=== PATIENT | female | born 1955 | race Caucasian/White ===

== ENCOUNTER 2019-04-30 13:10 | Outpatient (CLI) | payer BC, SELFPAY ==
[2019-04-30 14:23] LABS: Basophils Percent Auto 0.8 % (0.2-1.2); Eosinophils Absolute Auto 0.1 K/mm3 (0-0.3); Eosinophils Percent Auto 2.3 % (0-4.4); Hematocrit 39.6 % (37.0-47.0); Hemoglobin 12.5 g/dL (12.0-15.0); Lymphocytes Absolute Auto 1.79 K/mm3 (0.9-3.2); Mean Corpuscular HGB Conc 31.6 g/dl (32-36); Mean Corpuscular Volume 88.6 fl (80-100); Mean Platelet Volume 11.4 fl (7.4-10.4); Monocytes Absolute Auto 0.5 K/mm3 (0.1-0.6); Monocytes Percent Auto 9.1 % (2.6-8.5); Neutrophils Absolute Auto 2.8 K/mm3 (1.3-6.7); Neutrophils Percent Auto 53.8 % (45.5-73.1); Platelet Count Result 197 k/mm3 (150-375); Red Blood Count 4.47 M/mm3 (4.2-5.4); Red Cell Distribution Width 13.9 % (11.5-14.5); White Blood Count 5.3 K/mm3 (4.5-10.0)
[2019-04-30 14:34] LABS: INR 1.1; Prothrombin Time 13.9 Seconds (11.1-14.7)
[2019-04-30 14:38] LABS: CRP < 0.5 mg/dL (<1.0)
[2019-04-30 14:46] LABS: Hemoglobin A1C 5.2 % (<5.7)
[2019-04-30 14:48] LABS: Add Urine Microscopic? YES; Appearance Urine Cloudy (Clear); Bacteria Urine Trace /hpf; Bilirubin Urine Negative (Negative); Blood Urine Negative (Negative); Color Urine Amber (Yellow); Glucose Urine UA Negative (Negative); Ketones Urine Negative (Negative); Leukocyte Esterase Ur 3+ LEU/UL (NEGATIVE); Mucus Urine Few /lpf; Nitrate Urine Negative (Negative); Protein Urine Negative (Negative); Specific Grav Ur 1.028 (1.001-1.035); Squamous Epithelial Cell Urine Moderate /hpf (Few); Uric Acid Crystals Urine Many /hpf
[2019-04-30 14:52] LABS: LDL Cholesterol Direct 90 mg/dL
[2019-04-30 15:05] LABS: Iron 89 ug/dL (37-170)
[2019-04-30 15:07] LABS: Alanine Aminotransferase 23 U/L (4-35); Albumin Level 3.8 g/dL (3.5-5.1); Alkaline Phosphatase 80 U/L (38-126); Aspartate Amino Transferase 30 U/L (14-36); Bilirubin,Total 0.6 mg/dL (0.2-1.3); Blood Urea Nitrogen 16 mg/dL (7-17); Calcium 9.3 mg/dL (8.4-10.2); Carbon Dioxide 30 mmol/L (22-30); Chloride 103 mmol/L (98-107); Cholesterol 145 mg/dL (0-200); Estimated Glomerular Filt Rate 50; Glucose 83 mg/dL (65-105); HDL Direct 35 mg/dL; Parathyroid Intact 63.2 pg/mL (7.5-53.5); Phosphorus 3.5 mg/dL (2.5-4.5); Potassium 3.6 mmol/L (3.4-5.0); Sodium 139 mmol/L (137-145); Triglycerides 67 mg/dL (<150); Uric Acid 4.3 mg/dL (2.5-7.5)
[2019-04-30 15:09] LABS: Creatinine Urine 229.9 mg/dL
[2019-04-30 15:14] LABS: Microalbumin Urine Random 11.6 mg/L (0-16.7)
[2019-04-30 15:15] LABS: Percent Iron Saturation 25 % (20-50)
[2019-04-30 15:25] LABS: Free T4 Free Thyroxine 1.13 ng/mL (0.78-2.19)
[2019-04-30 15:42] LABS: Folic Acid > 20.0 ng/mL (2.76->20)
[2019-04-30 16:17] LABS: Vitamin D 25 Hydroxy 44.8 ng/mL
[2019-05-02 16:26] LABS: Zinc 58 mcg/dL (60-130)
[2019-05-03 03:10] LABS: Insulin Level Total 6.1 uIU/mL (<=19.6)
[2019-05-03 15:29] LABS: Vitamin B6 49.5 ng/mL (2.1-21.7)
[2019-05-03 19:15] LABS: GGT 14 U/L (3-65)
[2019-05-03 19:56] LABS: Triiodothyronine T3 Free 2.3 pg/mL (2.3-4.2)
[2019-05-04 09:30] LABS: Vitamin B1 36 nmol/L (8-30)
== END 2019-04-30 13:11 | disposition home or self-care (01) ==
DX: E46 Unspecified protein-calorie malnutrition (principal); E61.1 Iron deficiency; E88.81 Metabolic syndrome and other insulin resistance; E03.9 Hypothyroidism, unspecified; R73.9 Hyperglycemia, unspecified; E78.5 Hyperlipidemia, unspecified; E83.42 Hypomagnesemia; E83.39 Other disorders of phosphorus metabolism; E79.0 Hyperuricemia without signs of inflammatory arthritis and tophaceous disease; E53.8 Deficiency of other specified B group vitamins; E55.9 Vitamin D deficiency, unspecified; K76.0 Fatty (change of) liver, not elsewhere classified; K90.9 Intestinal malabsorption, unspecified; Z79.899 Other long term (current) drug therapy
CPT/HCPCS: 36415; 80053; 80061; 81001; 82043; 82306; 82525; 82607; 82728; 82746; 82977; 83036; 83525; 83540; 83550; 83735; 83970; 84100; 84207; 84425; 84439; 84443; 84481; 84550; 84630; 85025; 85610; 86140; 86141; 87086; 87088

== ENCOUNTER → 2019-12-27 17:46 | Outpatient (CLI) | payer BC, SELFPAY ==
--- NOTE | ~2019-12-27 | MM_ITS ---
EXAMINATION: MM screening [facility] BI w prabhjot HISTORY: Screening mammogram TECHNIQUE: Craniocaudal and mediolateral oblique 3-D tomosynthesis images were obtained and synthetic 2-D images were generated. CAD analysis was submitted and interpreted. COMPARISON: 09/12/2018, 08/04/2017, 07/16/2017, 11/25/2011 BREAST PARENCHYMAL COMPOSITION: There are scattered areas of fibroglandular density. FINDINGS: RIGHT BREAST: There is no evidence of suspicious mass, calcification, or architectural distortion to suggest malignancy. There has been no significant interval change. LEFT BREAST: A 6 mm mass is present in the anterior third of the slightly upper breast. IMPRESSION: 1. Left breast mass. 2. Additional mammographic views and possible breast ultrasound are recommended. BI-RADS Category 0: Incomplete: Needs additional imaging evaluation. Reviewed, dictated and finalized at location A. IMPRESSION: 1. Left breast mass. 2. Additional mammographic views and possible breast ultrasound are recommended . BI-RADS Category 0: Incomplete: Needs additional imaging evaluation.
== END ==
PROVIDERS: PCP Family Medicine; Visit Provider Obstetrics & Gynecology
DX: Z12.31 Encounter for screening mammogram for malignant neoplasm of breast (principal); R92.8 Other abnormal and inconclusive findings on diagnostic imaging of breast
CPT/HCPCS: 77063; 77067

== ENCOUNTER → 2020-01-15 09:29 | Outpatient (CLI) | payer BC, SELFPAY ==
--- NOTE | ~2020-01-15 | MMUS_ITS ---
EXAMINATION: MM diagnostic mammo unilat LT, US breast LT limited HISTORY: Left breast mass on screening mammogram TECHNIQUE: Additional 3-D tomosynthesis images of the left breast were performed and synthetic 2-D im ages were generated. CAD analysis was submitted and interpreted. High resolution limited left breast ultrasound was performed. COMPARISON: 12/27/2019, 09/12/2018, 07/16/2017 FINDINGS: MAMMOGRAPHIC FINDINGS: There is a 5 mm low-density obscured mass in the anterior third of the slightly upper breast at the 1 2:00 location 3 cm from the nipple. ULTRASOUND: There is a 5 mm x 3 mm oval, circumscribed, parallel, hypoechoic mass at the 11:30 location near the nipple. A 4 mm anechoic mass is seen at the 12:00 location near the nipple. Also seen is a 5 mm anech oic mass at the 3:00 location near the nipple. IMPRESSION: 1. Probably benign left breast masses. 2. Recommend 6 month follow-up left diagnostic mammogram and ultrasound. BI-RADS category 3, probably benign findings. Reviewed, dictated and finalized at location A. K SERVICE MANAGER IMPRESSION: 1. Probably benign left breast masses. 2. Recommend 6 month follow-up left diagnostic mammogram and ultrasound. BI-RADS category 3, probably benign findings.
== END ==
PROVIDERS: PCP Family Medicine; Visit Provider Obstetrics & Gynecology
DX: N63.22 Unspecified lump in the left breast, upper inner quadrant (principal); N63.25 Unspecified lump in the left breast, overlapping quadrants
CPT/HCPCS: 76642; 77065

== ENCOUNTER 2021-12-17 09:55 | Outpatient (CLI) | payer BC, SELFPAY ==
[2021-12-17 20:06] LABS: Basophils Absolute Auto 0.1 K/mm3 (0.0-0.1); Basophils Percent Auto 1.1 % (0.2-1.2); Eosinophils Absolute Auto 0.1 K/mm3 (0-0.3); Eosinophils Percent Auto 2.6 % (0-4.4); Hematocrit 41.9 % (37.0-47.0); Hemoglobin 13.3 g/dL (12.0-15.0); Immature Granulocyte Absolute 0.01 K/mm3 (0.00-0.031); Immature Granulocyte Percent A 0.2 % (0-0.5); Lymphocytes Absolute Auto 1.64 K/mm3 (0.9-3.2); Lymphocytes Percent Auto 30.9 % (18.3-44.2); Mean Corpuscular HGB Conc 31.7 g/dl (32-36); Mean Corpuscular Hemoglobin 29.1 pg (26-34); Mean Corpuscular Volume 91.7 fl (80-100); Mean Platelet Volume 11.7 fl (7.4-10.4); Monocytes Absolute Auto 0.5 K/mm3 (0.1-0.6); Monocytes Percent Auto 9.6 % (2.6-8.5); Neutrophils Absolute Auto 2.9 K/mm3 (1.3-6.7); Neutrophils Percent Auto 55.6 % (45.5-73.1); Platelet Count Result 224 k/mm3 (150-375); Red Blood Count 4.57 M/mm3 (4.2-5.4); White Blood Count 5.3 K/mm3 (4.5-10.0)
[2021-12-17 20:38] LABS: Alanine Aminotransferase 21 U/L (6-35); Alkaline Phosphatase 86 U/L (38-126); Anion Gap 10 mmol/L (8-16); Aspartate Amino Transferase 25 U/L (14-36); Bilirubin,Total 0.7 mg/dL (0.2-1.3); Blood Urea Nitrogen 15 mg/dL (7-17); Calcium 9.2 mg/dL (8.4-10.2); Carbon Dioxide 26 mmol/L (22-30); Chloride 106 mmol/L (98-107); Cholesterol 150 mg/dL (0-200); Estimated Glomerular Filt Rate 56; Glucose 75 mg/dL (65-110); HDL Direct 42 mg/dL; Potassium 3.4 mmol/L (3.4-5.0); Sodium 142 mmol/L (137-145); Triglycerides 80 mg/dL (<150)
[2021-12-17 20:40] LABS: Vitamin D 25 Hydroxy 55.5 ng/mL
[2021-12-17 20:49] LABS: LDL Cholesterol Direct 79 mg/dL
== END 2021-12-17 09:56 | disposition home or self-care (01) ==
LOC: ANHGOSHLAB 09:58
PROVIDERS: PCP Family Medicine; Visit Provider Nurse Practitioner Family
DX: E03.9 Hypothyroidism, unspecified (principal); I10 Essential (primary) hypertension; E55.9 Vitamin D deficiency, unspecified
CPT/HCPCS: 36415; 80053; 80061; 82306; 84443; 85025

== ENCOUNTER 2022-05-14 10:41 | Outpatient (CLI) | payer BC, MEDICARE, SELFPAY ==
--- NOTE | ~2022-05-14 | DEXA_ITS ---
Bone Density Report Name: NATHALIE RODRIGUEZ Age: 67 Sex: Female Ethnicity: White Date of : 1955 Indication: postmenopausal; screening for osteoporosis; height loss; Referring Provider: Suzi Morin Study: Bone densitometry was performed. Exam Date: May 14, 2022 Accession number: [id number] Bone Density: Region BMD T-score Z-score Classification AP Spine (L1-L4) 1.098 0.5 2.2 Normal Femoral Neck (Left) 0.826 -0.2 1.3 Normal Total Hip (Left) 0.961 0.2 1.4 Normal Femoral Neck (Right) 0.771 -0.7 0.8 Normal Total Hip (Right) 0.878 -0.5 0.7 Normal Total Hip Mean 0.920 -0.2 1.1 Normal World Health Organization criteria for BMD impression classify patients as: Normal (T-score at or above -1.0), Osteopenia (T-score between -1.0 and -2.5), or Osteoporosis (T-score at or below -2.5). 10-year Fracture Risk: FRAX not reported because: All T-scores for Spine Total, Hip Total, Femoral Neck at or above -1.0 Clinical Information Provided by Patient: Has used the following medications: Vitamin D, Calcium, MTV Patient maximum height was 72 Menopause Age: 62 Drinks caffeinated beverages Onset of menses at age 18 Number of children 3 Impression: The patient has normal bone mass. Discussion: BONE DENSITY IS ABOVE THE MINIMUM DESIRABLE LEVEL AT ALL SKELETAL SITES TESTED. This patient?s bone mineral density is above the minimum desirable level (T-score -1.0 or better) at all sites measured. The patient should follow a healthful lifestyle (good nutrition with adequate calcium and vitamin D, and appropriate weight-bearing exercise). Follow-Up: Consider repeating this study in 5 years or sooner if there is some new clinical indication. Reported by: ARJUN on 05/14/2022 11:41:00 AM. Reviewed, dictated and finalized at location ALaw ACEVEDO
--- NOTE | ~2022-05-14 | MM_ITS ---
EXAMINATION: MM screening [facility] BI w prabhjot HISTORY: Screening mammogram TECHNIQUE: Craniocaudal and mediolateral oblique 3-D tomosynthesis images were obtained and synthetic 2-D images were generated. CAD analysis was submitted and interpreted. COMPARISON: 01/15/2020 diagnostic left mammogram and limited left breast ultrasound 12/27/2019, 09/12/2018 bilateral screening mammogram examinations BREAST PARENCHYMAL COMPOSITION: There are scattered areas of fibroglandular density. FINDINGS: Approximately 4.4 x 9.7 mm new circumscribed opacity is noted in the lower outer right [address]. There are scattered additional smaller low-density circumscribed left mammographic opacities. Otherwise there is no evidence of suspicious mass, calcification, or architectural distortion to sugg est malignancy in either breast. There has been no other suspicious interval change. IMPRESSION: 1. New 4.4 x 9.7 mm circumscribed opacity in the lower outer right breast 2. Diagnostic left mammogram and left breast ultrasound examination are recommended. BI-RADS Category 0: Incomplete: Needs additional imaging evaluation. Reviewed, dictated and finalized at location A. IMPRESSION: 1. New 4.4 x 9.7 mm circumscribed opacity in the lower outer right breast 2. Diagnostic left mammogram and left breast ultrasound examination are recomme nded. BI-RADS Category 0: Incomplete: Needs additional imaging evaluation.
== END 2022-05-14 10:42 ==
PROVIDERS: PCP Family Medicine; Visit Provider Nurse Practitioner Family
DX: Z12.31 Encounter for screening mammogram for malignant neoplasm of breast (principal); Z78.0 Asymptomatic menopausal state; R92.8 Other abnormal and inconclusive findings on diagnostic imaging of breast
CPT/HCPCS: 77063; 77067; 77080

== ENCOUNTER → 2022-07-15 09:07 | Outpatient (CLI) | payer MEDICARE, BC, SELFPAY ==
--- NOTE | ~2022-07-15 | MMUS_ITS ---
EXAMINATION: MM diagnostic [facility] LT w prabhjot, US breast LT limited HISTORY: Possible left breast mass on screening mammogram TECHNIQUE: Additional 3-D tomosynthesis images of the left breast were performed and synthetic 2-D im ages were generated. CAD analysis was submitted and interpreted. High resolution limited left breast ultrasound was performed. COMPARISON: 05/14/2022, 01/15/2020, 12/27/2019, 09/12/2018 BREAST PARENCHYMAL COMPOSITION: There are scattered areas of fibroglandular density. FINDINGS: MAMMOGRAPHIC FINDINGS: There is a 10 mm x 4 mm oval, obscured, equal density mass in the middle third of the lower-outer clarice ast at the 4:00 location, 9 cm from the nipple. ULTRASOUND: There is a 12 mm x 3 mm cyst with thin internal septation at the 4:00 location, 5 cm from the nipple corresponding to the mammographic finding in question. An 8 mm x 2 mm oval, circumscribed, parallel, hypoechoic mass with no posterior features or internal vascularity is present at the 5:00 location, 7 cm from the nipple. IMPRESSION: 1. Benign mass accounting for the mammographic finding in question and probably benign sonographicall y detected mass at the 5:00 location. 2. Recommend 6 month follow-up limited left breast ultrasound. BI-RADS category 3, probably benign findings. Reviewed, dictated and finalized at location A. IMPRESSION: 1. Benign mass accounting for the mammographic finding in question and probably benign sonographically detected mass at the 5:00 location. 2. Recommend 6 month follow-up limited left breast ultrasound. BI-RADS category 3, probably benign findings.
== END ==
PROVIDERS: PCP Obstetrics & Gynecology; Visit Provider Nurse Practitioner Family
DX: R92.8 Other abnormal and inconclusive findings on diagnostic imaging of breast (principal)
CPT/HCPCS: 76642; 77061; 77065; G0279

== ENCOUNTER 2023-06-20 12:11 | Outpatient (CLI) | payer MEDICARE, BC, SELFPAY ==
--- NOTE | ~2023-06-20 | US_ITS ---
EXAMINATION: US soft tissue head and neck DATE: 06/20/2023 12:56 INDICATION: Left neck focal swelling. TECHNIQUE: Multiple grayscale and Doppler ultrasound images of the head and neck were obtained. COMPARISON: None FINDINGS: The left parotid gland is normal. There is a normal lymph node in the left parotid gland. IMPRESSION: 1. No abnormal mass or lymphadenopathy in the patient's area of concern near the left parotid gland. Reviewed, dictated and finalized at location E. IMPRESSION: 1. No abnormal mass or lymphadenopathy in the patient's area of concern near th e left parotid gland.
--- NOTE | ~2023-06-20 | MM_ITS ---
EXAMINATION: MM screening [facility] BI w prabhjot HISTORY: Screening mammogram TECHNIQUE: Craniocaudal and mediolateral oblique 3-D tomosynthesis images were obtained and synthetic 2-D images were generated. CAD analysis was submitted and interpreted. COMPARISON: 07/15/2022 diagnostic left mammogram and limited left breast ultrasound 05/14/2022 bilateral screening mammogram 01/15/2020 diagnostic left mammogram and limited left breast ultrasound 12/27/2019 bilateral screening mammogram BREAST PARENCHYMAL COMPOSITION: There are scattered areas of fibroglandular density. FINDINGS: There is no evidence of suspicious mass, calcification, or architectural distortion to sugg est malignancy in either breast. There has been no suspicious interval change. IMPRESSION: 1. No mammographic evidence of malignancy. 2. Recommend routine screening mammography in one year. BI-RADS Category 1: Negative Reviewed, dictated and finalized at location A.
== END 2023-06-20 12:12 ==
PROVIDERS: PCP Family Medicine; Visit Provider Family Medicine
DX: Z12.31 Encounter for screening mammogram for malignant neoplasm of breast (principal); R22.0 Localized swelling, mass and lump, head
CPT/HCPCS: 76536; 77063; 77067

== ENCOUNTER 2023-06-23 12:39 | Outpatient (CLI) | payer MEDICARE, BC, SELFPAY ==
[2023-06-23 19:22] LABS: Basophils Absolute Auto 0.1 K/mm3 (0.0-0.1); Basophils Percent Auto 1.4 % (0.2-1.2); Eosinophils Absolute Auto 0.3 K/mm3 (0-0.3); Eosinophils Percent Auto 4.4 % (0-4.4); Hematocrit 40.2 % (37.0-47.0); Hemoglobin 12.7 g/dL (12.0-15.0); Immature Granulocyte Absolute 0.01 K/mm3 (0.00-0.031); Immature Granulocyte Percent A 0.2 % (0-0.5); Lymphocytes Absolute Auto 1.84 K/mm3 (0.9-3.2); Lymphocytes Percent Auto 32.3 % (18.3-44.2); Mean Corpuscular HGB Conc 31.6 g/dl (32-36); Mean Corpuscular Hemoglobin 27.7 pg (26-34); Mean Corpuscular Volume 87.6 fl (80-100); Mean Platelet Volume 11.4 fl (7.4-10.4); Monocytes Absolute Auto 0.5 K/mm3 (0.1-0.6); Monocytes Percent Auto 8.6 % (2.6-8.5); Neutrophils Percent Auto 53.1 % (45.5-73.1); Platelet Count Result 214 k/mm3 (150-375); Red Blood Count 4.59 M/mm3 (4.2-5.4); Red Cell Distribution Width 14.6 % (11.5-14.5); White Blood Count 5.7 K/mm3 (4.5-10.0)
[2023-06-23 21:27] LABS: Iron 64 ug/dL (37-170)
[2023-06-23 21:36] LABS: Percent Iron Saturation 18 % (20-50)
[2023-06-23 21:41] LABS: Alanine Aminotransferase 15 U/L (6-35); Albumin Level 3.9 g/dL (3.5-5.1); Alkaline Phosphatase 95 U/L (38-126); Anion Gap 6 mmol/L (4-12); Aspartate Amino Transferase 33 U/L (14-36); Bilirubin,Total 0.7 mg/dL (0.2-1.3); Blood Urea Nitrogen 17 mg/dL (7-17); Calcium 9.3 mg/dL (8.4-10.2); Carbon Dioxide 26 mmol/L (22-30); Chloride 110 mmol/L (98-107); Cholesterol 174 mg/dL (0-200); Estimated Glomerular Filt Rate > 60; Glucose 80 mg/dL (65-110); HDL Direct 45 mg/dL; Potassium 3.8 mmol/L (3.4-5.0); Sodium 142 mmol/L (137-145); Triglycerides 98 mg/dL (<150)
[2023-06-23 21:58] LABS: Vitamin D 25 Hydroxy 41.2 ng/mL
[2023-06-23 22:18] LABS: LDL Cholesterol Direct 95 mg/dL
[2023-06-23 23:39] LABS: Folic Acid > 20.0 ng/mL (2.76->20)
== END 2023-06-23 12:40 | disposition home or self-care (01) ==
PROVIDERS: PCP Family Medicine; Visit Provider Family Medicine
DX: E03.9 Hypothyroidism, unspecified (principal); D64.9 Anemia, unspecified; E78.5 Hyperlipidemia, unspecified; Z90.3 Acquired absence of stomach [part of]; E55.9 Vitamin D deficiency, unspecified; R73.9 Hyperglycemia, unspecified; I12.9 Hypertensive chronic kidney disease with stage 1 through stage 4 chronic kidney disease, or unspecified chronic kidney disease; N18.31 Chronic kidney disease, stage 3a
CPT/HCPCS: 36415; 80053; 80061; 82306; 82607; 82728; 82746; 83036; 83540; 83550; 84443; 85025

== ENCOUNTER 2024-06-26 14:58 | Outpatient (CLI) | payer MEDICARE, BC, SELFPAY ==
--- NOTE | ~2024-06-26 | XR_ITS ---
XR abdomen/kub 1V 06/26/2024 15:25 INDICATION: Upper abdomen pain. TECHNIQUE: KUB COMPARISON: None FINDINGS: There is mildly distended small bowel loops left midabdomen, which may be related to normal bowel contractility, focal adynamic ileus or less likely partial obstruction. There is no evidence o f free air, mass, organomegaly, ascites. No abnormal calculi are seen. The bones appear intact. Lung bases unremarkable. IMPRESSION: 1: Mildly distended small bowel loops left midabdomen, which may be related to normal bowel contracti lity, focal adynamic ileus or less likely partial obstruction. . Reviewed, dictated and finalized at location A. IMPRESSION: 1: Mildly distended small bowel loops left midabdomen, which may be related to normal bowel contractility, focal adynamic ileus or less likely partial obstruc tion. .
== END 2024-06-26 14:59 | disposition home or self-care (01) ==
LOC: GOSHIMG 14:59
PROVIDERS: PCP Family Medicine; Visit Provider Family Medicine
DX: R10.9 Unspecified abdominal pain (principal)
CPT/HCPCS: 74018

== ENCOUNTER 2024-08-15 13:14 | Outpatient (CLI) | payer MEDICARE, BC, SELFPAY ==
[2024-08-15 13:59] LABS: Hematocrit 41.1 % (37.0-47.0); Mean Corpuscular HGB Conc 31.6 g/dl (32-36); Mean Corpuscular Hemoglobin 28.2 pg (26-34); Mean Corpuscular Volume 89.2 fl (80-100); Mean Platelet Volume 10.6 fl (7.4-10.4); Platelet Count Result 205 k/mm3 (150-375); Red Blood Count 4.61 M/mm3 (4.2-5.4); Red Cell Distribution Width 13.9 % (11.5-14.5); White Blood Count 5.8 K/mm3 (4.5-10.0)
[2024-08-15 14:10] LABS: INR 1.1; Prothrombin Time 14.1 Seconds (11.1-14.7)
[2024-08-15 14:11] LABS: Partial Thromboplastin Time 26.4 Seconds (22.3-36.8)
[2024-08-15 14:16] LABS: Anion Gap 10 mmol/L (4-12); Blood Urea Nitrogen 11 mg/dL (7-17); Calcium 8.8 mg/dL (8.4-10.2); Carbon Dioxide 23 mmol/L (22-30); Chloride 109 mmol/L (98-107); Estimated Glomerular Filt Rate > 60; Glucose 86 mg/dL (65-110); Potassium 3.2 mmol/L (3.4-5.0); Sodium 142 mmol/L (137-145)
--- OUTSIDE RECORDS SUMMARY | 2024-08-15 15:05 | XMS_ITS ---
Author Organization Unknown Address [address] [place] [id number] Phone Care Team Providers Care Metallurgical Technician Name Role Phone LAKSHMI KWAN Nursing Staff Unavailable SEAN LICEA Attending Unavailable Results [id number] - UA AUTOMATED W/O ESTELA RO MCR/TARA - Collect Date/Time: 07/13/2023 13:08 [facility] ID: [id number] [address], [place], [place], [id number] LOINC: Test Value Unit Reference Range Code Code System Flag SOURCE CLEAN CATCH NORMAL: CLEAN CATCH COLOR YELLOW NORMAL: YELLOW CLARITY CLOUDY NORMAL: CLEAR UA GLUCOSE NEGATIVE NORMAL: NEGATIVE BILIRUBIN NEGATIVE NORMAL: NEGATIVE KETONES NEGATIVE NORMAL: NEGATIVE SPEC GRAV 1.025 NORMAL: 1.005-1.030 BLOOD MODERATE (2+) NORMAL: NEGATIVE PH 7.0 NORMAL: 5.0-9.0 PROTEIN 2+ (100) NORMAL: 0.0-300mg/dL A UROBILIRUBIN 0.2 NORMAL: 0.2-1.0 EU/dL NITRATE NEGATIVE NORMAL: NEGATIVE LEUKOCYTES SMALL (1+) NORMAL: NEGATIVE A Social History Type Status Start Date End Date Code Code Syst em Sex Female Vital Signs Vital Sign Value Unit Simms Value Simms Unit Date/Time Recent/Initial? Code Code System Body Mass Index 45.99 kg/m2 07/13/2023 12:30 Initial 26300 -5 LOINC Systolic Blood Pressure 168 mm[Hg] 07/13/2023 12:30 Initial 8480- 6 LOINC Diastolic Blood Pressure 100 mm[Hg] 07/13/2023 12:30 Initial 8462- 4 LOINC Body Surface Area 2.62 m2 07/13/2023 12:30 Initial 3140- 1 LOINC Height 175.260 0 cm 69.00 in 07/13/2023 12:30 Initial 8302- 2 LOINC O2 Saturation 97 % 2023 12:30 Initial 73068 -5 LOINC Pulse 70.0 /min 07/13/2023 12:30 Initial 8867- 4 LOINC Respiration 19 /min 07/13/19 12:30 Initial 9279- 1 LOINC Temperature 36.2 Sujatha 97.1 F 07/13/19 12:30 Initial 8310- 5 LOINC Weight 141.25 kg 311.40 lbs 07/13/2023 12:30 Initial 56753 -7 LOINC Medications Medication Start Date End Date Route Frequency Dose Code Code System Medication Instructions Home Meds Cefdinir 300MG Oral Capsule 07/13/2023 Unknown By mouth Every 12 hours 1 CAPSULE 20020603 RxNorm 1 CAPSULE By mouth Every 12 hours x 7 days Assessment You had the following problems:ACUTE UTIDYSURIA Hospital Discharge Instructions Should you have any questions prior to discharge, please contact a member of your healthcare team. If you have left the hospital and have any questions, please contact your primary care physician. Reason For Referral No Data Found Problems Problem Start Date Resolved Date Status Code Code System ACUTE UTI active 998749987 SNOMED-CT DYSURIA active 95655116 SNOMED-CT Allergies and Adverse Reactions Allergy Substance Reaction Severity Start Date Concern Status Co de Code System LATEX Active 6009445 RxNorm CELEBREX Active 726166 RxNorm EGGS Active Plan of Treatment No Data Found Encounters Encounter Diagnosis Start Date Code Code Sys tem Acute urinary tract infection 07/13/2023 244252315 SNOMED-CT Personal Care Team Section Performer Name Performer Role Active Date Inactive Da te
--- OUTSIDE RECORDS SUMMARY | 2024-08-15 15:05 | XMS_ITS | Referral Summary ---
Author Organization [facility] [address] Address [address] [place] [address] Care Team Providers Care Soldering Machine Feeder Name Role Phone Jose Enrique Moreno MD Primary Care Provider Encounters Date Type Department Care Team Description 07/12/2024 Telephone [facility] Metabolic Weight Management [address] [place] [address] Medical [address] [place] [address] Phinitkhjungkruad , Ni, EXERCISE PHYSIOLOGIST CERTIFIED Prior Auth (Zepbound pen-injectors) 07/11/2024 Orders Only [facility] Metabolic Weight Management [address] [place] [address] Medical Office [address] [place] [address] Neva Rubio PA Morbid obesity with BMI of 45.0-49.9, adult (HCC) (Primary Dx) 07/11/2024 1:30 PM CDT Office Visit [facility] Metabolic Weight Management [address] [place] [address] [address] [place] [address] Neva Rubio PA Morbid obesity with BMI of 45.0-49.9, adult (HCC) (Primary Dx); History of sleeve gastrectomy; Lymphedema; Secondary hypertension; Encounter for weight loss counseling; Obstructive sleep apnea from Last 3 Months Allergies Active Allergy Reactions Criticality Noted Date Comments Latex Rash Medium 11/30/2023 Medications levothyroxine (SYNTHROID) 100 mcg tablet Take 1 tablet (100 mcg total) by mouth daily 08/21/202 4 Active losartan (COZAAR) 100 mg tablet Take 1 tablet (100 mg total) by mouth daily 4 Active vitamin A 3,000 mcg (10,000 units) capsule Take 1 capsule (10,000 Units total) by mouth daily Active multivit-min/iron/ folic acid/K (BARIATRIC MULTIVITAMINS ORAL) Take by mouth Active zinc acetate 25 mg (zinc) capsule Take by mouth Active tirzepatide, weight loss, (Zepbound) 2.5 mg/0.5 mL pen injectorIndication s:Obstructive sleep apnea Inject 0.5 mL (2.5 mg total) under the skin every 7 days 2 mL 2 5 Active semaglutide (WEGOVY) 0.25 mg/0.5 mL auto-injectorIndic ations:Morbid obesity with BMI of 45.0-49.9, adult (HCC) Inject 0.25 mg under the skin every 7 days 6 mL 5 Active Active Problems Problem Noted Date Diagnosed Date Vitamin A deficiency 11/30/2023 Assessment & Plan (01/25/2024 2:10 PM CONTRACT MODELER): Cont vit a supplemenet, recheck next visit Assessment & Plan (11/30/2023 1:39 PM CDT): On vit A 10,000 International units daily, recheck next visit History of sleeve gastrectomy 10/26/2023 Assessment & Plan (07/11/2024 1:55 PM CDT): Followed by dr winters Assessment & Plan (01/25/2024 1:45 PM CONTRACT MODELER): Followed by dr winters Assessment & Plan (11/30/2023 1:39 PM CDT): Followed by dr winters Assessment & Plan (10/26/2023 1:55 PM CDT): Asked pt to follow up with Dr Winters for evaluation. Lymphedema 10/26/2023 Assessment & Plan (01/25/2024 1:46 PM CONTRACT MODELER): Hx of lipolymhedema, using wraps, significant improved by restarting GLP-1 Assessment & Plan (11/30/2023 1:39 PM CDT): Hx of lipolymhedema, using wraps, significant improved by restarting GLP-1 Assessment & Plan (10/26/2023 2:08 PM CDT): Hx of lipolymhedema, using wraps Other hyperlipidemia 10/26/2023 Assessment & Plan (10/26/2023 2:05 PM CDT): Continue current weight loss plan as outlined in note with close monitoring with routine lab work. Weight loss of 5-10% can show a reduction in HDL cholesterol. Jayy DONOVAN, Akosua TA, Rayray C, et al. Nutritional considerations with antiobesity medications. Obesity ([place]). 2023; 1-19. doi:[email or web address] HTN (hypertension) 10/26/2023 Assessment & Plan (07/11/2024 2:24 PM CDT): High in office, pt monitoring at home Assessment & Plan (10/26/2023 1:58 PM CDT): On cozar FAN on CPAP 10/26/2023 Assessment & Plan (10/26/2023 2:05 PM CDT): Obesity is one of the leading risk factor for mortality. Metabolically healthy obese individuals had 49% increased risk of coronary artery disease, 7% increased risk of cerebrovascular disease and 96% increased risk of heart failure. In other words, even individuals who are normal weight can have metabolic abnormalities and similar risk for cardiac vascular disease events. Thus, the complications that may result from metabolic syndrome and frequently serious and chronic. They include atherosclerosis, diabetes, myocardial infarction, renal disease, cardiovascular events such as stroke, nonalcoholic fatty liver disease, peripheral artery disease, and cardiovascular diseases. His diabetes develops; there is an increased risk of retinopathy, neuropathy, renal disease and amputation of labs. Therefore, treating obesity, obesity related diseases is exceedingly crucial. Improving the hypertrophic adipocytes function and decrease insulin resistance is the main goal of the treatment. Furthermore, an emerging concept that the anti-obesity agents must not only reduce the hypertrophic adipocytes but must also correct the fat dysfunction, adiposopathy. Weight loss is associated with increases in mean suppression of glucose production from baseline, is associated with increase insulin stimulated in glucose disposal from fat-free mass and weight loss increased beta cell function. In other words, weight loss change in hepatic insulin sensitivity and muscle insulin sensitivity, beta cell function and a 24-hour plasma glucose and insulin profiles. Our goal is and decreasing the weight between 16 and 20% which will significantly decrease the risk of morbidity and mortality. Encounter for weight loss counseling 10/26/2023 Assessment & Plan (07/11/2024 2:23 PM CDT): Relevant weight management chart notes reviewed. Lab reviewd 09/2023, started on vit a I counseled the patient on nutrition: Implementing First Line therapy was discussed. Furthermore, we recommend a diet with a slightly higher high protein content, lower glycemic index with carbohydrate restriction yet without daily energy restriction. This approach will need to a weight loss because of higher satiety sensation. Recommend avoiding food persevered in plastic, eating out or processed food. Avoid eating out and ultraprocessed foods. Recommend fresh/frozen protein and vegetables. Study YES and NO list. I counseled the patient on exercise: Recommend 36 min. cardio daily. Based on availiable data on the secondary prevention of coronary heart disease, stroke and prediabetes, physical activity is potentially as active as many drug interventions.Jayy Velazquez: BMJ 2013 [id number]:[id number];11/2012; Diabetes Care, Volume 35, Jan 2012. Pharmacotherapy: Reviewed medications; discussed with the patient changes in details, discussed side effects and risks of taking the medications in details with the patient. Patient expressed understanding of the new orders; see attached new treatment and orders. Topamax 25 1 tab BID wegovy 0.25mg weekly - samples given Check on zepbound with insurance - sent to pharmacy- [employer] federal medicare Phetermine -stopped 2/2 mood changes Assessment & Plan (01/25/2024 2:12 PM CONTRACT MODELER): Relevant weight management chart notes reviewed. Lab reviewd 09/2023, started on vit a I counseled the patient on nutrition: Implementing First Line therapy was discussed. Furthermore, we recommend a diet with a slightly higher high protein content, lower glycemic index with carbohydrate restriction yet without daily energy restriction. This approach will need to a weight loss because of higher satiety sensation. Recommend avoiding food persevered in plastic, eating out or processed food. Avoid eating out and ultraprocessed foods. Recommend fresh/frozen protein and vegetables. Study YES and NO list. I counseled the patient on exercise: Recommend 36 min. cardio daily. Based on availiable data on the secondary prevention of coronary heart disease, stroke and prediabetes, physical activity is potentially as active as many drug interventions.Jayy Velazquez: [employer] 2012 [id number];11/2012; Diabetes Care, Volume 35, Jan 2012. Pharmacotherapy: Reviewed medications; discussed with the patient changes in details, discussed side effects and risks of taking the medications in details with the patient. Patient expressed understanding of the new orders; see attached new treatment and orders. Topamax 25 1 tab BID wegovy 0.25mg weekly - sample box given ( Too expensive at 30 days at $365, consider 90 days and coupon, or ozempic from neisha) Pt will also check on insurance coverage changed for 2024 - if covered plan to increase dose to 0.5mg Phetermine -stopped 2/2 mood changes Assessment & Plan (11/30/2023 1:39 PM CDT): Relevant weight management chart notes reviewed. Labs ordered I counseled the patient on nutrition: Implementing First Line therapy was discussed. Furthermore, we recommend a diet with a slightly higher high protein content, lower glycemic index with carbohydrate restriction yet without daily energy restriction. This approach will need to a weight loss because of higher satiety sensation. Recommend avoiding food persevered in plastic, eating out or processed food. Avoid eating out and ultraprocessed foods. Recommend fresh/frozen protein and vegetables. Study YES and NO list. I counseled the patient on exercise: Recommend 36 min. cardio daily. Based on availiable data on the secondary prevention of coronary heart disease, stroke and prediabetes, physical activity is potentially as active as many drug interventions.Jayy Velazquez: BMA[employer]en 2012 [id number];11/2012; Diabetes Care, Volume 35, Jan 2012. Pharmacotherapy: Reviewed medications; discussed with the patient changes in details, discussed side effects and risks of taking the medications in details with the patient. Patient expressed understanding of the new orders; see attached new treatment and orders. Topamax 25 1 tab BID wegovy 0.25mg weekly - sample box given ( Too expensive at 30 days at $365, consider 90 days and coupon, or ozempic from [facility]isha) Pt will also check on insurance coverage if different plan in 2023 Phetermine -stopped 2/2 mood changes Assessment & Plan (10/26/2023 2:12 PM CDT): Relevant weight management chart notes reviewed. Labs ordered I counseled the patient on nutrition: Implementing First Line therapy was discussed. Furthermore, we recommend a diet with a slightly higher high protein content, lower glycemic index with carbohydrate restriction yet without daily energy restriction. This approach will need to a weight loss because of higher satiety sensation. Recommend avoiding food persevered in plastic, eating out or processed food. Avoid eating out and ultraprocessed foods. Recommend fresh/frozen protein and vegetables. Study YES and NO list. I counseled the patient on exercise: Recommend 36 min. cardio daily. Based on availiable data on the secondary prevention of coronary heart disease, stroke and prediabetes, physical activity is potentially as active as many drug interventions.Jayy Velazquez: BMJ 2013 [id number]:[id number];11/2012; Diabetes Care, Volume 35, Jan 2012. Pharmacotherapy: Reviewed medications; discussed with the patient changes in details, discussed side effects and risks of taking the medications in details with the patient. Patient expressed understanding of the new orders; see attached new treatment and orders. Topamax 25 1 tab BID Start: wegovy 0.25mg weekly - pt states covered by [employer] Phetermine -stopped 2/2 mood changes Intestinal malabsorption following gastrectomy 0 10/26/2023 Assessment & Plan (01/25/2024 1:57 PM CONTRACT MODELER): Bariatric MVI Zinc Calcium Vit D Topamax 25 1 tab BID Wegovy 0.25mg - samples --> wegovy 0.5mg 90 days Assessment & Plan (11/30/2023 1:22 PM CDT): Bariatric MVI Zinc Calcium Vit D Topamax 25 1 tab BID Wegovy 0.25mg - samples --> wegovy 0.5mg 90 days Assessment & Plan (10/26/2023 2:00 PM CDT): Monitor closely for malabsorption, labs ordered Morbid obesity with BMI of 45.0-49.9, adult 09/29 Assessment & Plan (01/25/2024 2:11 PM CONTRACT MODELER): Obesity is one of the leading risk factor for mortality. Metabolically healthy obese individuals had 49% increased risk of coronary artery disease, 7% increased risk of cerebrovascular disease and 96% increased risk of heart failure. In other words, even individuals who are normal weight can have metabolic abnormalities and similar risk for cardiac vascular disease events. Thus, the complications that may result from metabolic syndrome and frequently serious and chronic. They include atherosclerosis, diabetes, myocardial infarction, renal disease, cardiovascular events such as stroke, nonalcoholic fatty liver disease, peripheral artery disease, and cardiovascular diseases. His diabetes develops; there is an increased risk of retinopathy, neuropathy, renal disease and amputation of labs. Therefore, treating obesity, obesity related diseases is exceedingly crucial. Improving the hypertrophic adipocytes function and decrease insulin resistance is the main goal of the treatment. Furthermore, an emerging concept that the anti-obesity agents must not only reduce the hypertrophic adipocytes but must also correct the fat dysfunction, adiposopathy. Weight loss is associated with increases in mean suppression of glucose production from baseline, is associated with increase insulin stimulated in glucose disposal from fat-free mass and weight loss increased beta cell function. In other words, weight loss change in hepatic insulin sensitivity and muscle insulin sensitivity, beta cell function and a 24-hour plasma glucose and insulin profiles. Our goal is and decreasing the weight between 16 and 20% which will significantly decrease the risk of morbidity and mortality. Assessment & Plan (11/30/2023 1:39 PM CDT): Obesity is one of the leading risk factor for mortality. Metabolically healthy obese individuals had 49% increased risk of coronary artery disease, 7% increased risk of cerebrovascular disease and 96% increased risk of heart failure. In other words, even individuals who are normal weight can have metabolic abnormalities and similar risk for cardiac vascular disease events. Thus, the complications that may result from metabolic syndrome and frequently serious and chronic. They include atherosclerosis, diabetes, myocardial infarction, renal disease, cardiovascular events such as stroke, nonalcoholic fatty liver disease, peripheral artery disease, and cardiovascular diseases. His diabetes develops; there is an increased risk of retinopathy, neuropathy, renal disease and amputation of labs. Therefore, treating obesity, obesity related diseases is exceedingly crucial. Improving the hypertrophic adipocytes function and decrease insulin resistance is the main goal of the treatment. Furthermore, an emerging concept that the anti-obesity agents must not only reduce the hypertrophic adipocytes but must also correct the fat dysfunction, adiposopathy. Weight loss is associated with increases in mean suppression of glucose production from baseline, is associated with increase insulin stimulated in glucose disposal from fat-free mass and weight loss increased beta cell function. In other words, weight loss change in hepatic insulin sensitivity and muscle insulin sensitivity, beta cell function and a 24-hour plasma glucose and insulin profiles. Our goal is and decreasing the weight between 16 and 20% which will significantly decrease the risk of morbidity and mortality. Assessment & Plan (10/26/2023 1:57 PM CDT): Obesity is one of the leading risk factor for mortality. Metabolically healthy obese individuals had 49% increased risk of coronary artery disease, 7% increased risk of cerebrovascular disease and 96% increased risk of heart failure. In other words, even individuals who are normal weight can have metabolic abnormalities and similar risk for cardiac vascular disease events. Thus, the complications that may result from metabolic syndrome and frequently serious and chronic. They include atherosclerosis, diabetes, myocardial infarction, renal disease, cardiovascular events such as stroke, nonalcoholic fatty liver disease, peripheral artery disease, and cardiovascular diseases. His diabetes develops; there is an increased risk of retinopathy, neuropathy, renal disease and amputation of labs. Therefore, treating obesity, obesity related diseases is exceedingly crucial. Improving the hypertrophic adipocytes function and decrease insulin resistance is the main goal of the treatment. Furthermore, an emerging concept that the anti-obesity agents must not only reduce the hypertrophic adipocytes but must also correct the fat dysfunction, adiposopathy. Weight loss is associated with increases in mean suppression of glucose production from baseline, is associated with increase insulin stimulated in glucose disposal from fat-free mass and weight loss increased beta cell function. In other words, weight loss change in hepatic insulin sensitivity and muscle insulin sensitivity, beta cell function and a 24-hour plasma glucose and insulin profiles. Our goal is and decreasing the weight between 16 and 20% which will significantly decrease the risk of morbidity and mortality. Resolved Problems Problem Noted Date Diagnosed Date Resolved Date History of sleeve gastrectomy 10/26/2023 10/26/2023 Immunizations Immunization Administration Dates Next Due Tdap 06/15/2017,06/15/2016,09/28/2004 Social History Tobacco Use Types Packs/Day Years Used Date Smoking Tobacco: Never Passive Smoke Exposure: Never Smokeless Tobacco: Never Tobacco Cessation:Counseling Given: Not Answered Comments Unknown Sex and Gender Information Value Date Recorded Sex Assigned at Not on file Legal Sex Female 7:46 AM CDT Gender Identity Not on file Sexual Orientation Not on file Last Filed Vital Signs Vital Sign Reading Time Taken Comments Blood Pressure 140/100 07/11/2024 2:23 PM CDT Pulse 72 07/11/2024 1:31 PM CDT Temperature 36.7 C (98 F) 07/11/2024 1:31 PM CDT Respiratory Rate - - Oxygen Saturation 98% 07/11/2024 1:31 PM CDT Inhaled Oxygen Concentration - - Weight 140.8 kg (310 lb 7.2 oz) 07/11/2024 1:31 PM CDT Height 175.3 cm (5' 9) 07/11/2024 1:31 PM CDT Body Mass Index 45.85 07/11/2024 1:31 PM CDT Plan of Treatment Not on file Procedures Procedure Name Priority Date/Time Associated Diagnosis Comments COMPREHENSIVE METABOLIC PANEL Routine 11/14/2023 8:53 AM CDT HEMOGLOBIN A1C Routine 11/14/2023 8:53 AM CDT LIPID PANEL Routine 11/14/2023 8:53 AM CDT from Last 3 Months or Most Recently Relevant to Health Maintenance Results * Hemoglobin A1c (11/14/2023 8:53 AM CDT) Hgb A1C 5.3 <5.7 % of total Hgb [facility] Comment: For the purpose of screening for the presence of diabetes: <5.7% Consistent with the absence of diabetes 5.7-6.4% Consistent with increased risk for diabetes (prediabetes) > or =6.5% Consistent with diabetes This assay result is consistent with a decreased risk of diabetes. Currently, no consensus exists regarding use of hemoglobin A1c for diagnosis of diabetes in children. According to [place] Diabetes Association (ADA) guidelines, hemoglobin A1c <7.0% represents optimal control in non- diabetic patients. Different metrics may apply to specific patient populations. Standards of Medical Care in Diabetes(ADA). This test was performed on the Sarah jace c503 platform. Effective 05/16/23, a change in test platforms from the [employer] [address] [employer] to the Sarah jace c503 may have shifted HbA1c results compared to historical results. Based on laboratory validation testing conducted at [facility], the Sarah platform relative to the [employer] platform had an average increase in HbA1c value of < or = 0.3%. This difference is within accepted variability established by the National Glycohemoglobin Standardization Program. Note that not all individuals will have had a shift in their results and direct comparisons between historical and current results for testing conducted on different platforms is not recommended. 11/14/2023 8:53 AM CDT 11/14/2023 9:00 AM CDT [facility] - 11/18/2023 8:21 AM CDT FASTING:YES FASTING: YES Neva CARDENAS LAB BLOOD ORDERABLES Final Result [facility] [address] [place] [address] * (ABNORMAL) Lipid panel (11/14/2023 8:53 AM CDT) [facility] Cholesterol 146 <200 mg/dL [facility] HDL 48(L) > OR = 50 mg/dL [facility] Triglycerides 66 <150 mg/dL [facility] LDL 83 mg/dL (calc) [facility] Comment: Reference range: <100 Desirable range <100 mg/dL for primary prevention; <70 mg/dL for patients with CHD or diabetic patients with > or = 2 CHD risk factors. LDL-C is now calculated using the Anastacio-Sherman calculation, which is a validated novel method providing better accuracy than the Friedewald equation in the estimation of LDL-C. Anastacio SS et al. JESUS. 2013;310(19): 8645-9859 (http://education.[employer]/faq/IBH071) Chol/HDL ratio 3.0 <5.0 (calc) [facility] Non-HDL, (LDL+VLDL) 98 <130 mg/dL (calc) [facility] Comment: For patients with diabetes plus 1 major ASCVD risk factor, treating to a non-HDL-C goal of <100 mg/dL (LDL-C of <70 mg/dL) is considered a therapeutic option. 11/14/2023 8:53 AM CDT 11/14/2023 9:00 AM CDT Narrative [facility] - 11/18/2023 8:21 AM CDT FASTING:YES FASTING: YES Neva CARDENAS LAB BLOOD ORDERABLES Final Result [facility] [id number] [place] [address] * (ABNORMAL) Comprehensive metabolic panel (11/14/2023 8:53 AM CDT) Pathologist [facility] Glucose 74 65 - 99 mg/dL [facility] Comment: Fasting reference interval BUN 18 7 - 25 mg/dL [facility] Creatinine 0.97 0.50 - 1.05 mg/dL [facility] eGFR 64 > OR = 60 mL/min/1.7 3m2 [facility] BUN/creat ratio SEE NOTE: 6 - 22 (calc) [facility] Comment: Not Reported: BUN and Creatinine are within reference range. Sodium 142 135 - 146 mmol/L [facility] Potassium, pl 3.8 3.5 - 5.3 mmol/L [facility] Chloride 110 98 - 110 mmol/L [facility] CO2 25 20 - 32 mmol/L [facility] Calcium 8.5(L) 8.6 - 10.4 mg/dL [facility] Protein, sr 6.3 6.1 - 8.1 g/dL [facility] Albumin 3.6 3.6 - 5.1 g/dL [facility] GLOBULIN 2.7 1.9 - 3.7 g/dL (calc) [facility] Alb/glob ratio 1.3 1.0 - 2.5 (calc) [facility] Bilirubin, total 0.7 0.2 - 1.2 mg/dL [facility] Alk phos 84 37 - 153 U/L [facility] AST 17 10 - 35 U/L [facility] ALT (SGPT) 13 6 - 29 U/L [facility] 11/14/2023 8:53 AM CDT 11/14/2023 9:00 AM CDT Narrative [facility] - 11/18/2023 8:21 AM CDT FASTING:YES FASTING: YES us Neva CARDENAS LAB BLOOD ORDERABLES Final Result [facility] [phone] [phone] from Last 3 Months or Most Recently Relevant to Health Maintenance Insurance [facility] MEDIC[facility] Care Teams Soldering Machine Feeder Relationship Specialty Start Date End Date Jose Enrique Moreno MD PCP - General Family Practice 12/22/18
--- OUTSIDE RECORDS SUMMARY | 2024-08-15 15:06 | XMS_ITS | Clinical Summary ---
Author Organization [facility] [place] [address] Address [address] [place] [address] Care Team Providers Care Brine Plant Operator Name Role Phone Jose Enrique Moreno MD Primary Care Provider Allergies Active Allergy Reactions Criticality Noted Date Comments Latex Rash Medium 11/30/2023 Medications levothyroxine (SYNTHROID) 100 mcg tablet Take 1 tablet (100 mcg total) by mouth daily 4 Active losartan (COZAAR) 100 mg tablet [...] 11/30/2023 Assessment & Plan (01/25/2024 2:10 PM MECHANISM INSPECTOR): Cont vit a supplemenet, recheck next visit Assessment & Plan (11/30/2023 1:39 PM CDT): On vit A 10,000 International units daily, recheck next visit History of sleeve gastrectomy 10/26/2023 Assessment & Plan (07/11/2024 1:55 PM CDT): Followed by dr winters Assessment & Plan (01/25/2024 1:45 PM MECHANISM INSPECTOR): Followed by dr winters Assessment & Plan (11/30/2023 1:39 PM CDT): Followed by dr winters Assessment & Plan (10/26/2023 1:55 PM CDT): Asked pt to follow up with Dr Winters for evaluation. Lymphedema 10/26/2023 Assessment & Plan (01/25/2024 1:46 PM MECHANISM INSPECTOR): Hx of lipolymhedema, using wraps, significant improved [...] show a reduction in HDL cholesterol. Jayy MAN, Akosua TA, Rayray C, et al. Nutritional considerations with antiobesity medications. Obesity ([place]). 2023; 1-19. doi:10.1002/boo.61053 HTN (hypertension) 10/26/2023 Assessment & Plan (07/11/2024 [...] active as many drug interventions.Jayy Velazquez: BMJ 2012 347:f5577;11/2012; Diabetes Care, Volume 35, Jan [...] to pharmacy- BCBS federal medicare Phetermine -stopped 2/ mood changes Assessment & Plan (01/25/2024 2:12 PM MECHANISM INSPECTOR): Relevant weight management chart notes reviewed. Lab [...] active as many drug interventions.Jayy Velazquez: BMJ 2012 347:f5577;11/2012; Diabetes Care, Volume 35, Jan [...] to increase dose to 0.5mg Phetermine -stopped 2 mood changes Assessment & Plan (11/30/2023 1:39 [...] if different plan in 2023 Phetermine -stopped 04/01 mood changes Assessment & Plan (10/26/2023 2:12 [...] is potentially as active as many drug interventions.CarolineBritanycrys: BMJ 2013 347:f5577;11/2012; Diabetes Care, Volume 35, Jan 2012. Pharmacotherapy: Reviewed medications; discussed with the patient changes in details, discussed side effects and risks of taking the medications in details with the patient. Patient expressed understanding of the new orders; see attached new treatment and orders. Topamax 25 1 tab BID Start: wegovy 0.25mg weekly - pt states covered by BCBS Phetermine -stopped / mood changes Intestinal malabsorption following gastrectomy 0 10/26/2023 Assessment & Plan (01/25/2024 1:57 PM MECHANISM INSPECTOR): Bariatric MVI Zinc Calcium Vit D Topamax [...] 09/29 Assessment & Plan (01/25/2024 2:11 PM MECHANISM INSPECTOR): Obesity is one of the leading risk [...] Date History of sleeve gastrectomy 10/26/2023 10/26/2023 Encounters Date Type Department Care Team Description 07/12/2024 Telephone [facility] Metabolic Weight Management [facility] [address] Office [address] [place] [address] Petrona Cisneros, EMISSIONS TESTING TECHNICIAN Prior Auth (Zepbound pen-injectors) 07/11/2024 1:30 PM CDT Office Visit [facility] Metabolic Weight Management [address] [place] [address] [address] [place] [address] Neva Rubio PA Morbid obesity with BMI of 45.0-49.9, adult (HCC) (Primary Dx); History of sleeve gastrectomy; Lymphedema; Secondary hypertension; Encounter for weight loss counseling; Obstructive sleep apnea 07/11/2024 Orders Only [facility] Metabolic Weight Management [address] [facility] [address] [place] [address] Neva Rubio PA Morbid obesity with BMI of 45.0-49.9, adult (HCC) (Primary Dx) from Last 3 Months Immunizations Immunization Administration Dates Next Due Tdap 06/15/2017,06/15/2016,09/28/2004 Family History Medical History Relation Name Comments Diabetes Brother Hypertension Brother Hypertension Father Breast cancer Mother Hypertension Mother Uterine cancer Mother Diabetes Sister Hypertension Sister Uterine cancer Sister Relation Name Status Comments Brother Father Mother Sister Social History Tobacco Use Types Packs/Day Years Used Date Smoking Tobacco: Never Passive Smoke Exposure: Never Smokeless Tobacco: Never Tobacco Cessation:Counseling Given: Not Answered Comments Unknown Sex and Gender Information Value Date Recorded Sex Assigned at Not on file Legal Sex Female 7:46 AM CDT Gender Identity Not on file Sexual Orientation Not on file Obstetrics History Last Filed Vital Signs Vital Sign Reading [...] 07/11/2024 1:31 PM CDT Plan of Treatment Health Maintenance Due Date Last Done Comments Albumin Creatinine Ratio, Urine 1957 Breast Cancer Screening-Mammogram 1957 Colon Cancer Screening-Colonoscopy 1957 Depression Screening 1957 Fall Risk Assessment 1957 Hepatitis C Screening 1957 Osteoporosis Screening-Bone Density Scan 1957 Dilated Eye Exam 1957 Foot Exam 1957 Hepatitis B Screening 1975 Pneumococcal vaccine 65+ (1 of 2 - PCV) 02/10/1976 Zoster Vaccine (1 of 2) 2007 Well Visit 65+ 2022 Hemoglobin A1C 05/13/2024 11/14/2023, 11/07/2023 Influenza Vaccine (Season Ended) 2024 Lipid Panel 11/13/2024 11/14/2023, 11/07/2023 eGFR 11/13/2024 11/14/2023 DTaP/Tdap/Td Vaccine (4 - Td or Tdap) 06/16/2027 06/15/2017, 06/15/2016, 09/28/2004 Procedures Procedure Name Priority Date/Time Associated Diagnosis Comments COMPREHENSIVE METABOLIC PANEL Routine 11/14/2023 8:53 AM CDT HEMOGLOBIN A1C Routine 11/14/2023 8:53 AM CDT LIPID PANEL Routine 11/14/2023 8:53 AM CDT from Last 3 Months or Most Recently Relevant to Health Maintenance Results * Hemoglobin A1c (11/14/2023 8:53 AM CDT) Hgb A1C 5.3 <5.7 % of total Hgb [facility] Comment: For the purpose of screening for the presence of diabetes: <5.7% Consistent with the absence of diabetes 5.7-6.4% Consistent with increased risk for diabetes (prediabetes) > or =6.5% Consistent with diabetes This assay result is consistent with a decreased risk of diabetes. Currently, no consensus exists regarding use of hemoglobin A1c for diagnosis of diabetes in children. According to [place] Diabetes Association (ADA) guidelines, hemoglobin A1c <7.0% represents optimal control in non- diabetic patients. Different metrics may apply to specific patient populations. Standards of Medical Care in Diabetes(ADA). This test was performed on the Sarah jace c503 platform. Effective 05/16/23, a change in test platforms from the Kerr Coin Machine Mechanic to the Sarah jace c503 may have shifted HbA1c results compared to historical results. Based on laboratory validation testing conducted at [employer], the Sarah platform relative to the Kerr [...] AM CDT 11/14/2023 9:00 AM CDT Narrative [employer] - 11/18/2023 8:21 AM CDT FASTING:YES FASTING: YES Neva CARDENAS LAB BLOOD ORDERABLES Final Result [facility] [address] [place] [address] * (ABNORMAL) Lipid panel (11/14/2023 8:53 AM CDT) Cholesterol 146 <200 mg/dL [facility] [...] Friedewald equation in the estimation of LDL-C. Aanstacio SS et al. JESUS. 2013;310(19): 5640-6452 (http://education.Escom.Startup Wise Guys/faq/CEH478) Chol/HDL ratio 3.0 <5.0 (calc) [facility] [...] LAB BLOOD ORDERABLES Final Result [facility] [address] [address] * (ABNORMAL) Comprehensive metabolic panel (11/14/2023 8:53 AM CDT) Glucose 74 65 - 99 mg/dL [facility] [...] Neva CARDENAS LAB BLOOD ORDERABLES Final Result [facility] [address] [phone] from Last 3 Months or Most Recently Relevant to Health Maintenance Insurance [facility] MEDICARE [facility] FED[facility] Care Teams Brine Plant Operator Relationship Specialty Start Date End Date Jose Enrique Moreno MD PCP - General Family Practice 12/22/18
--- OUTSIDE RECORDS SUMMARY | 2024-08-15 15:07 | XMS_ITS | CONTINUITY OF CARE DOCUMENT ---
Author Name param virgen Address Unknown Organization [facility] Address [address] [place] [address] Phone [phone] Care Team Providers Care Community Action Worker Name Role Phone KAYODE OCHOA MD Unavailable CURLY LAZARO III, MD Unavailable [phone] INSURANCE PROVIDERS Payer name Policy type / Coverage type [place] red libertarian ID [facility] [id number]
--- OUTSIDE RECORDS SUMMARY | 2024-08-15 15:07 | XMS_ITS ---
Author Organization Unknown Address [address] [place] [id number] Phone Care Team Providers Care Aquatic Instructor Name Role Phone SEAN ROBINANTHA Attending Unavailable Results LC CULTURE UR W COLONY - Col lect Date/Time: 07/13/2023 16:52 [facility] ID: [id number] [address] [place], [id number] LOINC: Test Value Unit Reference Range Code Code System Flag Final Report 10,000 cfu/ml Escherichia coli Final Report Normal urogenital/skin jeremías also present Preliminary Report 10,000 cfu/ml Escherichia coli Preliminary Report Susceptibility to follow. Ampicillin 4 Ampicillin/Sulbactam <=2 Cefazolin <=4 Cefepime <=0.12 Ceftriaxone <=0.25 Ciprofloxacin <=0.06 Gentamicin <=1 Nitrofurantoin <=16 Piperacillin/Tazobact am <=4 Trimethoprim/Sulfa <=20 NOTIFY IFC? NO Social History Type Status Start Date End Date Code Code Syst em Smoking History Unknown if ever smoked [id number] Sex Female Medications Medication Start Date End Date Route [...] Status Code Code System ACUTE UTI active 095839007 SNOMED-CT DYSURIA active 74825895 SNOMED-CT Allergies and Adverse Reactions Allergy Substance Reaction Severity Start Date Concern Status Co de Code System LATEX Active 4670474 RxNorm CELEBREX Active 986714 RxNorm EGGS Active Plan of Treatment No Data Found Encounters Encounter Diagnosis Start Date Code Code Sys tem Urinary tract infection, site not specified 07/13/2023 SNOMED-CT Personal Care Team Section Performer Name Performer Role Active Date Inactive Da te
== END 2024-08-15 13:15 | disposition home or self-care (01) ==
LOC: ANHSURGERY 13:22
PROVIDERS: Anesthesiology; PCP Family Medicine; Visit Provider Obstetrics & Gynecology
DX: N18.30 Chronic kidney disease, stage 3 unspecified (principal); N95.0 Postmenopausal bleeding
CPT/HCPCS: 36415; 80048; 85027; 85610; 85730

== ENCOUNTER 2024-08-16 02:14 | Day surgery (SDC) | payer MEDICARE, BC, SELFPAY ==
[2024-08-09 16:11] VITALS: BMI 44.2
--- NOTE | 2024-08-09 16:28 | PC.NURSE ---
Report to the Outpatient Waiting Room, entrance under the green pavilion located off [facility], at time __0915am on date ___08/16/24 ____. Planned Procedure Time: _11:15am .? Time changes happen often and if your time is changed the preop area will call you the afternoon before. - You and your visitor will be asked to self-screen and do not enter if you have any COVID symptoms. Please call surgeon if you need to reschedule. - A mask is optional within the hospital at this time. Patients may have clear liquids (water, carbonated beverages, clear teas, apple juice) until 3 hours prior to surgery with a maximum of 20 ounces. - No food from midnight until time of surgery and no smoking, or chewing tobacco (or any form of nicotine). No chewing gum, candy or mints. (08:15am) - Take only the following medications with a SIP of water on the morning of surgery: _Levothyroxine , Tylenol if needed DO NOT STOP ANY OF YOUR OTHER PRESCRIPTION MEDICATIONS PRIOR TO SURGERY EXCEPT THE FOLLOWING Hold all vitamins and supplements for 3 days per anesthesiologist.Last dose is 08/12/24. Medications to discontinue per physician Ozempic for 7 days prior to surgery per PCP , 10 days per Anesthesia Date to take last dose___08/04/24 Please no make-up, nail estonian, hairspray, perfume, deodorant, or body powder the day of surgery.? No jewelry (including any body piercings) or valuables the day of surgery, leave them at home.? Please take a shower or bath the night before, or the morning of, surgery with an antibacterial soap.? Wear comfortable, loose fitting clothing. - Jewelry must be removed prior to entering the operating room.? Rings and piercings that are not removed may be cut off. - The hospital will not accept responsibility for valuables.? - Please leave all valuables, including medications, at home the day of surgery. If you are going home after surgery, a licensed hack driver must drive you home.? - NO public transportation without another adult if you receive anesthesia. - We recommend that an adult stay with you for 24 hours following discharge. - We also recommend that you do not drive, make important decision, drink alcoholic beverages, or take any drugs that were not prescribed by your health care provider for at least 24 hours after your discharge time. Follow any additional instructions given to you from your surgeon. Telephone instructions given to __patient and asked if any additional questions and then verbalized understanding. Patient advised to call surgeon office or pre surgery nurse liaison [phone] if any additional questions.
--- NOTE | 2024-08-15 15:51 | PM.IMHP ---
H&P: HPI History of Present Illness Date/Time: 08/15/24 15:51 69-year-old female presents for evaluation of postmenopausal bleeding and thickened endometrial cavity. Over the past 6 months she has been having intermittent vaginal bleeding which at times was attributable to hematuria and was treated for urinary tract infections. She was seen for a well-woman exam and exam was entirely normal, ultrasound was ordered which did reveal thickened endometrium at 11mm. Therefore presents today for evaluation and tissue sampling. Pap smear was performed and was without abnormalities other than atrophy. Chief Complaint: Postmenopausal bleeding Review of Systems Review of Systems: All systems reviewed & are unremarkable except as noted in HPI and below PMFSH Past Medical History Medical History Screening mammogram, encounter for Encounter for special screening examination for neoplasm of cervix Left breast mass Morbid obesity Lymphedema of lower extremity Anal fistula s/p fistulotomy - 1999 CKD (chronic kidney disease) stage 3, GFR 30-59 ml/min Essential (primary) hypertension Hypothyroidism (acquired) FAN (obstructive sleep apnea) Osteoarthritis Vitamin D deficiency Surgical History Surgical History S/P excision of lipoma (~10/2022) abdominal wall History of abdominoplasty (~10/2022) History of cholecystectomy 1997 History of ankle surgery left achilles repair - 07/2011 History of sleeve gastrectomy 10/2018 Family History Family History Father Family history of cardiovascular disease Family history of coronary artery disease Mother Family history of malignant neoplasm of uterus Sibling Family history of malignant neoplasm of uterus Cancer of back brother Social History Social History Social History: Jaycee is , she is a retired [employer]. [facility] and are travelling in senior living. Her daughter and 2 small grandsons live with them. Smoking packs per day: 0.4 Smoking cigarettes per day: 8.0 Years smoked: 10 Smoking pack-years: 4.00 Smoking status: Former smoker Tobacco type: cigarettes Second hand tobacco smoke exposure: No Smoking end date: 02/29/92 Alcohol intake: current Alcohol use details: 2-4 per month Substance use: never Substance use type: does not use Do You Feel Safe in your Home?: Yes Lack of Transportation: No Lack of Food: Never True Current Housing: I Have Housing Concerned About Future Housing: No Difficulty Paying Gas/Electric Bills: No Difficulty Paying for Meds: No Currently Unemployed: No Education: Associate Degree Difficulty w/ Childcare or Family Care: No Living arrangements: with family Additional living arrangements comments: Occupation/Education: retired Gender identity (if verbalized by the patient): Female Sexual Orientation (if Verbalized by the Patient): Straight or Heterosexual Spiritual care concerns: No Meds Home Medications and Allergies Home Medications ?Medication ?Instructions ?Recorded ?Confirmed ?Type cholecalciferol (vitamin D3) 50 50 mcg PO DAILY 05/14/22 08/09/24 History mcg (2,000 unit) capsule multivitamin 1 tablet PO DAILY 05/14/22 08/09/24 History Bariatric Vitamin 1 cap PO DAILY 01/18/24 08/09/24 History Tumeric 1 unit PO DAILY 01/18/24 08/09/24 History vitamin A 2,400 mcg capsule 2,400 mcg PO DAILY 01/18/24 08/09/24 History zinc gluconate 50 mg tablet 50 mg PO DAILY 01/18/24 08/09/24 History losartan 100 mg tablet 100 mg PO DAILY #100 tabs 06/26/24 08/09/24 Rx topiramate 25 mg tablet 25 mg PO Q12H 06/26/24 08/09/24 History levothyroxine 100 mcg tablet See Rx Instructions .Route 07/09/24 08/09/24 Rx .COMPLEX #90 tabs Allergies Allergy/AdvReac Type Severity Reaction Status Date / Time celecoxib Allergy Unknown Agitated Verified 08/09/24 16:05 ibuprofen Allergy Unknown Other Verified 08/09/24 16:05 latex Allergy Unknown Other Verified 08/09/24 16:05 egg Allergy Vomiting Verified 08/09/24 16:05 Exam Const: General: cooperative and healthy appearing Resp: Effort & Inspection: normal respiratory effort Auscultation: clear to auscultation bilaterally Cardio: Rate: regular rate Rhythm: regular rhythm GI: Inspection: normal to inspection Auscultation: normal bowel sounds : External Female Exam: normal external appearance Speculum Exam - Vagina: normal appearance of the vagina Speculum Exam - Cervix: normal appearance of the cervix ( Atrophic) Bimanual exam- vagina & uterus: normal bimanual exam Bimanual Exam- Adnexa, other: normal adnexae Assessment and Plan Assessment and plan (1) Postmenopausal bleeding: Code(s): N95.0 - Postmenopausal bleeding Status: Acute Assessment and Plan: proceed with hysteroscopy with uterine curettings
--- OUTSIDE RECORDS SUMMARY | 2024-08-16 02:18 | XMS_ITS | Referral Summary ---
Author Organization [facility] [place] [address] Address [address] [place] [address] Care Team Providers Care Metal Coater Name Role Phone Jose Enrique Moreno MD Primary Care Provider Encounters Date Type Department Care Team Description 07/12/2024 Telephone [facility] Metabolic Weight Management [address] [place] [address] [address] [place] [address] Phinitkhjungkruad , Ni, INDUSTRIAL ARTS TEACHER Prior Auth (Zepbound pen-injectors) 07/11/2024 Orders Only [facility] Metabolic Weight Management [address] [place] [address] Medical [address] [place] [address] Neva Rubio PA Morbid obesity with BMI of 45.0-49.9, adult (HCC) (Primary Dx) 07/11/2024 1:30 PM CDT Office Visit [facility] Metabolic Weight Management [address] [place] [address] [address] [place] [address] Neva Rubio PA Morbid obesity [...] 11/30/2023 Assessment & Plan (01/25/2024 2:10 PM HOLLOW WARE MAKER): Cont vit a supplemenet, recheck next visit Assessment & Plan (11/30/2023 1:39 PM CDT): On vit A 10,000 International units daily, recheck next visit History of sleeve gastrectomy 10/26/2023 Assessment & Plan (07/11/2024 1:55 PM CDT): Followed by dr winters Assessment & Plan (01/25/2024 1:45 PM HOLLOW WARE MAKER): Followed by dr winters Assessment & Plan (11/30/2023 1:39 PM CDT): Followed by dr winters Assessment & Plan (10/26/2023 1:55 PM CDT): Asked pt to follow up with Dr Winters for evaluation. Lymphedema 10/26/2023 Assessment & Plan (01/25/2024 1:46 PM HOLLOW WARE MAKER): Hx of lipolymhedema, using wraps, significant improved [...] al. Nutritional considerations with antiobesity medications. Obesity ([place]). 2023; 1-19. doi:10.1002/boo.86193 HTN (hypertension) 10/26/2023 Assessment & Plan (07/11/2024 [...] changes Assessment & Plan (01/25/2024 2:12 PM HOLLOW WARE MAKER): Relevant weight management chart notes reviewed. Lab [...] as active as many drug interventions.Jayy Velazquez: [employer]anc[employer] 2012 347:f5577;11/2012; Diabetes Care, Volume 35, Jan [...] 10/26/2023 Assessment & Plan (01/25/2024 1:57 PM HOLLOW WARE MAKER): Bariatric MVI Zinc Calcium Vit D Topamax [...] 09/29 Assessment & Plan (01/25/2024 2:11 PM HOLLOW WARE MAKER): Obesity is one of the leading risk [...] A1C 5.3 <5.7 % of total Hgb [facility] Comment: For the purpose of screening for the presence of diabetes: <5.7% Consistent with the absence of diabetes 5.7-6.4% Consistent with increased risk for diabetes (prediabetes) > or =6.5% Consistent with diabetes This assay result is consistent with a decreased risk of diabetes. Currently, no consensus exists regarding use of hemoglobin A1c for diagnosis of diabetes in children. According to [place] Diabetes Association (ADA) guidelines, hemoglobin A1c <7.0% represents optimal control in non- diabetic patients. Different metrics may apply to specific patient populations. Standards of Medical Care in Diabetes(ADA). This test was performed on the Sarah jace c503 platform. Effective 05/16/23, a change in test platforms from the Kerr Shaper Set Up Operator to the Sarah jace c503 may have shifted HbA1c results compared to historical results. Based on laboratory validation testing conducted at [facility], the Sarah platform relative to the Kerr [...] 8:53 AM CDT 11/14/2023 9:00 AM CDT [facility] - 11/18/2023 8:21 AM CDT FASTING:YES FASTING: YES Neva CARDENAS LAB BLOOD ORDERABLES Final Result [facility] [address] [place] [address] * (ABNORMAL) Lipid panel (11/14/2023 8:53 AM CDT) [facility] Cholesterol 146 <200 mg/dL [facility] [...] LDL-C. Anastacio SS et al. JESUS. 2013;310(19): 7258-9430 (http://education.YouHelp/faq/BBY214) Chol/HDL ratio 3.0 <5.0 (calc) [facility] [...] LAB BLOOD ORDERABLES Final Result [facility] [address] [place] [address] * (ABNORMAL) Comprehensive metabolic panel (11/14/2023 8:53 AM CDT) Pathologist [facility] Glucose 74 65 - 99 mg/dL [facility] [...] LAB BLOOD ORDERABLES Final Result [facility] [address] [phone] from Last 3 Months or Most Recently Relevant to Health Maintenance Insurance [facility] MEDICARE [facility] Care Teams Metal Coater Relationship Specialty Start Date End Date Jose Enrique Moreno MD PCP - General Family Practice 12/22/18
--- OUTSIDE RECORDS SUMMARY | 2024-08-16 02:18 | XMS_ITS | Clinical Summary ---
Author Organization [facility] [address] Address [address] [place] [address] Care Team Providers Care Momd Teacher Name Role Phone Jose Enrique Moreno MD [...] 11/30/2023 Assessment & Plan (01/25/2024 2:10 PM CANVAS CUTTER MACHINE): Cont vit a supplemenet, recheck next visit Assessment & Plan (11/30/2023 1:39 PM CDT): On vit A 10,000 International units daily, recheck next visit History of sleeve gastrectomy 10/26/2023 Assessment & Plan (07/11/2024 1:55 PM CDT): Followed by dr winters Assessment & Plan (01/25/2024 1:45 PM CANVAS CUTTER MACHINE): Followed by dr winters Assessment & Plan (11/30/2023 1:39 PM CDT): Followed by dr winters Assessment & Plan (10/26/2023 1:55 PM CDT): Asked pt to follow up with Dr Winters for evaluation. Lymphedema 10/26/2023 Assessment & Plan (01/25/2024 1:46 PM CANVAS CUTTER MACHINE): Hx of lipolymhedema, using wraps, significant improved [...] al. Nutritional considerations with antiobesity medications. Obesity ([place]). 2023; 1-19. doi:[email or web address]/boo.74365 HTN (hypertension) 10/26/2023 Assessment & Plan (07/11/2024 [...] changes Assessment & Plan (01/25/2024 2:12 PM CANVAS CUTTER MACHINE): Relevant weight management chart notes reviewed. Lab [...] is potentially as active as many drug interventions.CarolineBritanycrsy: BMJ 2013 347:f5577;11/2012; Diabetes Care, Volume 35, [...] 10/26/2023 Assessment & Plan (01/25/2024 1:57 PM CANVAS CUTTER MACHINE): Bariatric MVI Zinc Calcium Vit D Topamax [...] 09/29 Assessment & Plan (01/25/2024 2:11 PM CANVAS CUTTER MACHINE): Obesity is one of the leading risk [...] Type Department Care Team Description 07/12/2024 Telephone [facility] Metabolic Weight Management [facility] [address] [place] [address] Petrona Cisneros, WATER METER READER Prior Auth (Zepbound pen-injectors) 07/11/2024 1:30 PM CDT Office Visit [facility]abolic Weight Management [address] [place] [address] [address] [place] [address] Neva Rubio PA Morbid obesity with BMI of 45.0-49.9, adult (HCC) (Primary Dx); History of sleeve gastrectomy; Lymphedema; Secondary hypertension; Encounter for weight loss counseling; Obstructive sleep apnea 07/11/2024 Orders Only [facility] Metabolic Weight Management [address] [facility] [address] [place] [address] Neva Rubio PA Morbid obesity [...] A1C 5.3 <5.7 % of total Hgb [facility]Kenneth Wiley Comment: For the purpose of screening for the presence of diabetes: <5.7% Consistent with the absence of diabetes 5.7-6.4% Consistent with increased risk for diabetes (prediabetes) > or =6.5% Consistent with diabetes This assay result is consistent with a decreased risk of diabetes. Currently, no consensus exists regarding use of hemoglobin A1c for diagnosis of diabetes in children. According to [place] Diabetes Association (ADA) guidelines, hemoglobin A1c <7.0% represents optimal control in non- diabetic patients. Different metrics may apply to specific patient populations. Standards of Medical Care in Diabetes(ADA). This test was performed on the Sarah jace c503 platform. Effective 05/16/23, a change in test platforms from the Kerr Regulatory Manager to the Sarah jace c503 may have shifted HbA1c results compared to historical results. Based on laboratory validation testing conducted at [facility], the Sarah platform relative to the Kerr [...] AM CDT 11/14/2023 9:00 AM CDT Narrative M:Metrics - 11/18/2023 8:21 AM CDT FASTING:YES FASTING: YES Neva CARDENAS LAB BLOOD ORDERABLES Final Result [facility] [address] [place] [address] * (ABNORMAL) Lipid panel (11/14/2023 8:53 AM [...] LDL-C. Anastacio SS et al. JESUS. 2013;310(19): 4653-3259 (http://education.dooub.Dianwoba/faq/HML498) Chol/HDL ratio 3.0 <5.0 (calc) [facility] [...] LAB BLOOD ORDERABLES Final Result [facility] [address] [id number] * (ABNORMAL) Comprehensive metabolic panel (11/14/2023 8:53 [...] BLOOD ORDERABLES Final Result [facility] [address] [id number] from Last 3 Months or Most Recently Relevant to Health Maintenance Insurance [facility]ICARE [facility] Care Teams Momd Teacher Relationship Specialty Start Date End Date Jose Enrique Moreno MD PCP - General Family Practice 12/22/18
--- OUTSIDE RECORDS SUMMARY | 2024-08-16 02:18 | XMS_ITS ---
Author Organization Unknown Address [address] [place] [phone] Phone Care Team Providers Care Screener Operator Name Role Phone LAKSHMI KWAN Nursing Staff Unavailable SEAN LICEA Attending Unavailable Results [id number] - UA AUTOMATED W/O ESTELA RO MCR/TARA - Collect Date/Time: 07/13/2023 13:08 [facility] ID: [id number] [address], [place], [place], [id number] LOINC: Test Value Unit Reference Range Code [...] Female Vital Signs Vital Sign Value Unit Winona Value Winona Unit Date/Time Recent/Initial? Code Code System Body Mass Index 45.99 kg/m2 07/13/2023 12:30 Initial 18998 -5 LOINC Systolic Blood Pressure 168 mm[Hg] 07/13/2023 12:30 Initial 8480- 6 LOINC Diastolic Blood Pressure 100 mm[Hg] 07/13/2023 12:30 Initial 8462- 4 LOINC Body Surface Area 2.62 m2 07/13/2023 12:30 Initial 3140- 1 LOINC Height 175.260 0 cm 69.00 in 07/13/2023 12:30 Initial 8302- 2 LOINC O2 Saturation 97 % 2023 12:30 Initial 90646 -5 LOINC Pulse 70.0 /min 07/13/2023 12:30 Initial 8867- 4 LOINC Respiration 19 /min 07/13/19 12:30 Initial 9279- 1 LOINC Temperature 36.2 Sujatha 97.1 F 07/13/19 12:30 Initial 8310- 5 LOINC Weight 141.25 kg 311.40 lbs 07/13/2023 12:30 Initial 56932 -7 LOINC Medications Medication Start Date End [...] Status Code Code System ACUTE UTI active 738740349 SNOMED-CT DYSURIA active 79348605 SNOMED-CT Allergies and Adverse Reactions Allergy Substance Reaction Severity Start Date Concern Status Co de Code System LATEX Active 2303844 RxNorm CELEBREX Active 365508 RxNorm EGGS Active Plan of Treatment No Data Found Encounters Encounter Diagnosis Start Date Code Code Sys tem Acute urinary tract infection 07/13/2023 844211036 SNOMED-CT Personal Care Team Section Performer Name Performer Role Active Date Inactive Da te
--- OUTSIDE RECORDS SUMMARY | 2024-08-16 02:18 | XMS_ITS | CONTINUITY OF CARE DOCUMENT ---
Author Name param virgen Address Unknown Organization [facility] Address [address] [place] [address] Phone [phone] Care Team Providers Care Cerner Analyst Name Role Phone KAYODE OCHOA MD Unavailable [phone] CURLY LAZARO III, MD Unavailable INSURANCE PROVIDERS Payer name Policy type / Coverage type [place] red constitution party ID [facility] [id number]
--- OUTSIDE RECORDS SUMMARY | 2024-08-16 02:18 | XMS_ITS | Clinical Summary ---
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 Gender Identity Not on file Sexual Orientation Not on file Last Filed Vital Signs Vital Sign Reading Time Taken Comments Blood Pressure 140/100 11/20/2012 3:18 PM CDT Pulse - - Temperature - - Respiratory Rate - - Oxygen Saturation - - Inhaled Oxygen Concentration - - Weight 177.8 kg (392 lb) 11/20/2012 3:18 PM CDT Height 175.9 cm (5' 9.25) 11/20/2012 3:18 PM CD T Body Mass Index 57.47 11/20/2012 3:18 PM CDT Plan of Treatment Health Maintenance Due Date Last Done Comments Hepatitis C 1975 DTaP, Tdap and Td Vaccines ( 1 - Tdap) 02/10/1976 Mammogram Screening 1997 Pneumococcal Vaccine: 50+ Ye ars (1 of 1 - PCV) 2007 Zoster Vaccines (1 of 2) 2007 Colorectal Cancer Screening Colonoscopy (10 Years) 04/29/2019 04/28/2009 Dexa Scan (General) 2022 COVID-19 Vaccine ( - 2023-2 5 season) 2023 RSV Immunization or 60+ Years (1 - 1-dose 75+ series) 02/10/2032 Meningococcal B Vaccine Aged Out No l onger eligible based on patient's age to complete this topic Meningococcal Vaccine Aged Out No cary loida eligible based on patient's age to complete this topic RSV Immunizations Under 20 Months Aged Out No longer eligible based on patient's age to complete this topic Procedures Procedure Name Priority Date/Time Associated Diagnosis Comments COLONOSCOPY Routine 04/28/2009 12:00 AM SHOWROOM MANAGER from Last 3 Months or Most Recently Relevant to Health Maintenance Results * Colonoscopy (04/28/2009 12:00 AM SHOWROOM MANAGER) 04/28/2009 04/28/2009 Narrative TOUCHWORKS TO EPIC CONVERSION - 04/28/2009 12:00 AM SHOWROOM MANAGER Documented hx of procedure Procedure Note , Generic Conversion, - 05/18/2018 Documented hx of procedure Generic Conversion Md [facility] PROCEDURE ORDERABLES Final Result TOUCHWORKS TO EPIC CONVERSION from Last 3 Months or Most Recently Relevant to Health Maintenance
--- OUTSIDE RECORDS SUMMARY | 2024-08-16 02:18 | XMS_ITS ---
Author Organization Unknown Address [address] [place] [phone] Phone Care Team Providers Care Complaint Operator Name Role Phone SEAN VINAYAK Attending Unavailable Results LC CULTURE UR W COLONY - Col lect Date/Time: 07/13/2023 16:52 [facility] ID: [id number] [address] [place], [phone] LOINC: Test Value Unit Reference Range Code [...] Smoking History Unknown if ever smoked [address] Sex Female Medications Medication Start [...] Status Code Code System ACUTE UTI active 348021140 SNOMED-CT DYSURIA active 47017746 SNOMED-CT Allergies and Adverse Reactions Allergy Substance Reaction Severity Start Date Concern Status Co de Code System LATEX Active 7867280 RxNorm CELEBREX Active 236509 RxNorm EGGS Active Plan of Treatment No Data Found Encounters Encounter Diagnosis Start Date Code Code Sys tem Urinary tract infection, site not specified 07/13/2023 SNOMED-CT Personal Care Team Section Performer Name Performer Role Active Date Inactive Da te
--- NOTE | 2024-08-16 07:19 | WPDHPUPDATE1 ---
History and Physical Update Update Date/Time: 08/16/24 07:19 History and Physical has been reviewed, including an updated exam of the patient. There are NO changes in the patient's condition. Risks, benefits, and alternatives have been discussed and questions answered. Patient agrees to proceed with procedure.
[2024-08-16] MEDS: ACETAMINOPHEN 500 MG TABLET 1000 MG PO (10:23)
--- NOTE | 2024-08-16 10:23 | WPDANESEPPF ---
Anes - Initial Pre Proc Eval Procedure: Operation Date: 08/16/24 11:15 Proposed Procedures p Hysteroscopy Dilation and Curettage - Cleveland Vaz MD Date/Time: 08/16/24 10:23 Surgeon: Cleveland Vaz MD Pre Op Diagnosis: post menopausal bleeding Patient Data Age: 69 Gender: F Height: 1.78 m Weight: 140 kg Allergies Allergy/AdvReac Type Severity Reaction Status Date / Time celecoxib Allergy Unknown Agitated Verified 08/16/24 10:21 ibuprofen Allergy Unknown Other Verified 08/16/24 10:21 latex Allergy Unknown Other Verified 08/16/24 10:21 egg Allergy Vomiting Verified 08/16/24 10:21 Home Medications ?Medication ?Instructions ?Recorded ?Confirmed ?Type cholecalciferol (vitamin D3) 50 50 mcg PO DAILY 05/14/22 08/16/24 History mcg (2,000 unit) capsule multivitamin 1 tablet PO DAILY 05/14/22 08/16/24 History Bariatric Vitamin 1 cap PO DAILY 01/18/24 08/16/24 History Tumeric 1 unit PO DAILY 01/18/24 08/09/24 History vitamin A 2,400 mcg capsule 2,400 mcg PO DAILY 01/18/24 08/16/24 History zinc gluconate 50 mg tablet 50 mg PO DAILY 01/18/24 08/09/24 History losartan 100 mg tablet 100 mg PO DAILY #100 tabs 06/26/24 08/09/24 Rx topiramate 25 mg tablet 25 mg PO Q12H 06/26/24 08/09/24 History levothyroxine 100 mcg tablet See Rx Instructions .Route 07/09/24 08/16/24 Rx .COMPLEX #90 tabs misoprostol 200 mcg tablet 200 mcg PO ONCE #2 tabs 08/15/24 Rx (Cytotec) ezetimibe 10 mg tablet 10 mg PO DAILY 08/16/24 08/16/24 History Patient hx anesthesia problems: none Family hx anesthesia problems: none Results Review: All pre-operative results and documents have been reviewed as part of the pre-operative evaluation. [facility] Past Medical History Medical History Screening mammogram, encounter for Encounter for special screening examination for neoplasm of cervix Left breast mass Morbid obesity Lymphedema of lower extremity Anal fistula s/p fistulotomy - 1999 CKD (chronic kidney disease) stage 3, GFR 30-59 ml/min Essential (primary) hypertension Hypothyroidism (acquired) FAN (obstructive sleep apnea) Osteoarthritis Vitamin D deficiency Surgical History Surgical History S/P excision of lipoma (~10/2022) abdominal wall History of abdominoplasty (~10/2022) History of cholecystectomy 1998 History of ankle surgery left achilles repair - 07/2011 History of sleeve gastrectomy 10/2018 Family History Family History Father Family history of cardiovascular disease Family history of coronary artery disease Mother Family history of malignant neoplasm of uterus Sibling Family history of malignant neoplasm of uterus Cancer of back brother Social History Social History Social History: Jaycee is , 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 She and her live in [facility] and are travelling in group home. Her daughter and 2 small grandsons live with them. Smoking packs per day: 0.25 Smoking cigarettes per day: 5.0 Years smoked: 10 Smoking pack-years: 2.50 Smoking status: Former smoker (< 10 pack years quit in her 30s) Tobacco type: cigarettes Second hand tobacco smoke exposure: No Smoking end date: 02/29/92 Alcohol intake: current Alcohol use details: social Substance use: never Substance use type: does not use Do You Feel Safe in your Home?: Yes Lack of Transportation: No Lack of Food: Never True Current Housing: I Have Housing Concerned About Future Housing: No Difficulty Paying Gas/Electric Bills: No Difficulty Paying for Meds: No Currently Unemployed: No Education: Associate Degree Difficulty w/ Childcare or Family Care: No Living arrangements: with family Additional living arrangements comments: Occupation/Education: retired Gender identity (if verbalized by the patient): Female Sexual Orientation (if Verbalized by the Patient): Straight or Heterosexual Spiritual care concerns: No Anes - Eval Final PreProcedure Day of Procedure 08/16/24 10:23 Patient weight: morbidly obese Heart: regular rate and rhythm Lungs: clear to auscultation Airway: Mallampati scale class II Neurological: alert and oriented Last oral intake: >/= 8 hours ASA classification: III Emergent: no Anesthetic plan: proceed Anesthesia type and monitoring: general GIVS and standard monitoring Results Review: All pre-operative results and documents have been reviewed as part of the pre-operative evaluation. Informed Consent: The patient's anesthetic plan and its attendant risks and benefits were discussed with the patient/family/POA. Questions were solicited and answers provided to the satisfaction of the patient/family/POA.
[2024-08-16 10:24] VITALS: BP 146/83; PULSE 64; RESP 14; TEMP 37.1; O2SAT 97
[2024-08-16] MEDS: LACTATED RINGERS 1,000 ML 30 ML IV CONT (10:25)
--- NOTE | 2024-08-16 10:57 | S_PTH ---
PATIENT: Jaycee Chaudhari LOC: [facility] U#:[id number] AGE/SX: 69/F ROOM: RE08/16/[address]: Cleveland Vaz MD : 1955 BED: DIS: 08/16/2024 SPEC #: [id number] RECD: 08/16/24 12:56 STATUS: BERNY REQ #: [id number] REAL: 08/16/24 10:[address]: Cleveland Vaz DEPT: [facility] Surgical RECD BY: Inés Skinner ENTERED: 08/16/24 12:56 SP TYPE: Surgical OTHR DR: Jose Enrique Moreno MD Tissues: A - Endometrial Curettings Procedures: Hematoxylin and Eosin Stain Gross and Microscopic Level 4
[2024-08-16 11:04] VITALS: BP 117/67; PULSE 73; RESP 14; O2SAT 95
[2024-08-16 11:30] VITALS: BP 147/76; PULSE 52; RESP 20
--- NOTE | 2024-08-16 11:31 | W.PM.PROC2 ---
Procedure Note - Detailed Date of Procedure 08/16/24 Pre-op Diagnosis post menopausal bleeding Post-op Diagnosis Same Procedure Performed 1. Hysteroscopy 2. Polypectomy with D&C Surgeon Cleveland Vaz MD Anesthesia MAC Findings atrophic endometrial cavity with polyps Description of Procedure patient prepped and draped usual manner this procedure. Cervix was dilated the hysteroscope be placed. Hysteroscopic exam revealed generally atrophic endometrial cavity with multiple small polypoid lesions noted. These were removed in their entirety and generalized sampling of each quadrant was obtained. There was no significant bleeding at this point the procedure was considered terminated. Estimated Blood Loss 10 Drains No Packing No Pathology Yes Complications No immediate complications Condition Stable Disposition PACU [facility] Billing Surgery - Charge Forward: Surgery Billing
[2024-08-16 12:00] VITALS: BP 129/78; PULSE 52; RESP 20
[2024-08-16 12:30] VITALS: BP 120/74; PULSE 64; RESP 20
== END 2024-08-16 12:35 | disposition home or self-care (01) ==
PROVIDERS: PCP Family Medicine; Visit Provider Obstetrics & Gynecology
PROC: 0U5B8ZZ Destruction of Endometrium, Via Natural or Artificial Opening Endoscopic (ICD-10-PCS; CPT 58563; principal; 2024-08-16 11:15)
DX: N84.0 Polyp of corpus uteri (principal); I12.9 Hypertensive chronic kidney disease with stage 1 through stage 4 chronic kidney disease, or unspecified chronic kidney disease; N18.30 Chronic kidney disease, stage 3 unspecified; E03.9 Hypothyroidism, unspecified; G47.33 Obstructive sleep apnea (adult) (pediatric); E55.9 Vitamin D deficiency, unspecified; M19.90 Unspecified osteoarthritis, unspecified site; E66.01 Morbid (severe) obesity due to excess calories; Z68.41 Body mass index [BMI] 40.0-44.9, adult; Z98.890 Other specified postprocedural states; Z90.49 Acquired absence of other specified parts of digestive tract; Z98.84 Bariatric surgery status; Z87.891 Personal history of nicotine dependence; Z87.19 Personal history of other diseases of the digestive system; Z80.49 Family history of malignant neoplasm of other genital organs; Z80.8 Family history of malignant neoplasm of other organs or systems; Z82.49 Family history of ischemic heart disease and other diseases of the circulatory system
CPT/HCPCS: 58558; 88305; A9270; J2003; J2250; J2704; J3010; J7120